=== PATIENT | female | born 1990 | race Caucasian/White ===

== ENCOUNTER 2019-05-11 17:10 | Emergency (ER) | payer SELFPAY | END 2019-05-11 19:23 | disposition home or self-care (01) | DX: K21.9 Gastro-esophageal reflux disease without esophagitis (principal); K29.00 Acute gastritis without bleeding; J01.90 Acute sinusitis, unspecified; F17.210 Nicotine dependence, cigarettes, uncomplicated; Z91.041 Radiographic dye allergy status; Z88.0 Allergy status to penicillin | CPT/HCPCS: 36415; 80053; 85025; 99283 ==

== ENCOUNTER 2019-05-20 11:30 | Emergency (ER) | payer SELFPAY ==
[2019-05-20 11:36] VITALS: BP 130/84; PULSE 89; RESP 20; TEMP 36.6; O2SAT 99; BMI 41.5
--- NOTE | 2019-05-20 12:37 | ED_ITS ---
HPI - Extremity Problem General: Chief complaint: Extremity Problem,Nontraumatic Stated complaint: right leg pain Time Seen by Provider: 05/20/19 12:33 History of Present Illness: HPI Narrative: Patient comes in today with complaints of right knee pain starting yesterday evening. Patient described a pretty active day but states that she normally is very active. Patient appears well. No signs of deformity or significant swelling is noted. Patient appears in no pain at rest. Review of Systems General: Reports: 10 or more systems reviewed and unremarkable except in HPI and below Musc: Reports: other (right knee pain) PFSH ED PFSH: Statuses (acute, chronic, etc) shown below reflect problem list status as previously entered and may not be historically accurate Social History Smoking and tobacco status: current every day smoker Female Reproductive History: Date of last menstrual period: 05/20/19 Physical Exam Const: COMMON NORMALS: no apparent distress and oriented x3 GENERAL APPEARANCE: cooperative HENMT: COMMON NORMALS: normocephalic, external ears normal, EAC's normal, TM's normal bilaterally and external nose normal HEAD & SCALP: normal to inspection and normocephalic FACE & SINUS: normal facial exam NOSE: external nose normal GENERAL EAR: hearing grossly impaired EXTERNAL EAR: Yes external ears normal EXTERNAL AUDITORY CANAL: EAC's normal TYMPANIC MEMBRANE: TM's normal bilaterally MOUTH: oral and palatal mucosa normal THROAT: posterior oropharynx normal Eye: COMMON NORMALS: PERRL and EOMs intact bilaterally PUPIL: Yes PERRL Neck/C-Spine: COMMON NORMALS: full ROM and no lymphadenopathy Lymph: LYMPHATIC: no lymphedema noted Chest: COMMONS NORMALS: inspection of chest normal and palpation of chest normal Resp: COMMON NORMALS: normal respiratory effort and clear to auscultation bilaterally AUSCULTATION: clear to auscultation bilaterally Cardio: COMMON NORMALS: regular rate and regular rhythm RATE: regular rate RHYTHM: regular rhythm GI: COMMON NORMALS: normal to inspection, nondistended, normoactive bowel sounds and non-tender : COMMON NORMALS: Yes no CVA tenderness BLADDER/KIDNEY EXAM: Yes no CVA tenderness Back/Pelvis: COMMON NORMALS: no CVA tenderness and thoracic and lumbar spine normal to inspection Extremity: RIGHT LOWER EXTREMITY: Yes knee joint Right knee: Yes inspection (minimal to no swelling), Yes palpation (tenderness medial joint line) and Yes ROM (normal) Neuro: COMMON NORMALS: oriented x3, moves all extremities and no focal motor deficits Psych: COMMON NORMALS: mental status grossly normal and cooperative Skin: COMMON NORMALS: no rashes or lesions noted GENERAL SKIN EXAM: no rashes or lesions noted Course Vital Signs: Vital signs: Vital Signs Temperature 97.9 F 05/20/19 11:36 Pulse Rate 89 05/20/19 11:36 Respiratory Rate 20 H 05/20/19 11:36 Blood Pressure 130/84 05/20/19 11:36 Pulse Oximetry 99 05/20/19 11:36 MDM - Extremity (Nontraumatic) MDM Narrative: Medical decision making narrative: Patient comes in today for complaints of right knee pain. On exam we note tenderness to the medial knee joint of the right leg. No obvious swelling. No crepitus noted with range of motion. Patient reports increased pain with extension and flexion. Distal pulse is normal with prompt capillary refill. Differential diagnosis includes osteoarthritis, tendinitis, ligament strain, meniscal tear. X-ray noted no abnormality. Reviewed exam with patient with recommendations for follow-up with primary care or orthopedics. Patient reports understanding of care and need for follow-up Discharge Plan Discharge Patient Disposition: Home, Self-Care Clinical Impression: Acute pain of left knee Condition: Stable Prescriptions: New diclofenac sodium 75 mg tablet,delayed release (DR/EC) 75 mg PO BID Qty: 20 RF: 0 hydrocodone-acetaminophen 5-325 mg tablet 1 tab PO Q8H PRN (Reason: pain, severe) Qty: 7 RF: 0 No Action Pepcid 40 mg Tablet 40 mg PO DAILY RF: 0 Referrals: Merissa Fisher DO [Primary Care Provider] - Discharge Diet: Usual diet Discharge Activity: Limit activity as instructed Activity Restrictions/Additional Instructions: Activity as tolerated Elastic wrap for comfort Acetaminophen for further pain relief Do not use ibuprofen with diclofenac Follow-up with primary care in one week for recheck Follow-up with orthopedist for persistent knee pain Stand Alone Forms: Work/Release Restrictions Coding Level of Care Code ED Museum Specialist for Rosa Maria Gaitan Exam Problem Focused
--- NOTE | 2019-05-20 12:37 | XR_ITS ---
WS: [id number] Right knee, 3 views, 05/20/2019 Clinical Data: pain Comparison: None. Findings: No fractures or dislocations are seen. The joint spaces are normal. The patella is intact. The soft t issues are unremarkable. XR/XR knee RT 3V* [id number] Impression: Negative right knee.
[2019-05-20 13:40] VITALS: BP 114/63; PULSE 68; RESP 16; O2SAT 98
== END 2019-05-20 13:46 | disposition home or self-care (01) ==
PROVIDERS: Emergency Provider Nurse Practitioner Family; PCP Family Medicine
DX: M25.561 Pain in right knee (principal); F17.210 Nicotine dependence, cigarettes, uncomplicated
CPT/HCPCS: 73562; 99281

== ENCOUNTER 2019-09-08 21:57 | Emergency (ER) | payer SELFPAY ==
[2019-09-08 22:09] VITALS: BP 135/86; PULSE 85; RESP 17; TEMP 36.5; O2SAT 99; BMI 42.9
--- NOTE | 2019-09-08 22:34 | W.ED.HA ---
HPI - Headache General: Chief Complaint: Headache Stated Complaint: myers Time Seen by Provider: 09/08/19 22:34 History of Present Illness: HPI Narrative: Patient is a 29-year-old female who comes to the ED with a migraine. Patient has a past medical history of migraines. Migraine started on September 04. She states that the headache is retro-orbital the right and left eye goes to the back of the head. She has photophobia and nausea with the headache. Denies any other neurological symptoms such as numbness tingling or weakness to her extremities. She states that this migraine is similar to past migraines but longer lasting and more severe. Patient has taken Tylenol ibuprofen and Aleve to help with migraine and it has not helped. Associated symptoms: Reports nausea and photophobia; Deny chest pain, fever(s), rash or vomiting Review of Systems Const: Denies: fever, chills or fatigue Eyes: Reports: photophobia; Denies: change in vision or eye discomfort ENMT: Denies: throat pain, painful swallowing, nasal discharge or nasal congestion Card: Denies: chest pain, palpitations, edema, swelling of feet/ankles, shortness of breath on exertion or shortness of breath when lying down Resp: Denies: shortness of breath, productive cough or non-productive cough GI: Reports: nausea; Denies: abdominal pain, vomiting, diarrhea, constipation or blood in stool : Denies: flank pain, painful urination or blood in urine Musc: Denies: neck pain, back pain or extremity swelling Skin/Breast: Denies: rash or new lesion Neuro: Reports: headache; Denies: numbness in extremities or weakness in extremities [facility] ED PFSH: Social History Smoking and tobacco status: current every day smoker Female Reproductive History: Date of last menstrual period: 05/20/19 Physical Exam Narrative: EXAM NARRATIVE: Patient is a 29-year-old female who is sitting in the exam room with the lights off when I entered. She appeared in no acute distress. Const: COMMON NORMALS: oriented x3, healthy appearing and alert GENERAL APPEARANCE: cooperative HENMT: COMMON NORMALS: normocephalic HEAD & SCALP: normocephalic MOUTH: oral and palatal mucosa normal THROAT: posterior oropharynx normal and uvula midline Eye: COMMON NORMALS: PERRL, EOMs intact bilaterally, conjunctivae normal and normal visual roblero by confrontation CONJUNCTIVA: Yes conjunctivae normal PUPIL: Yes PERRL DIRECT OPHTHALMOSCOPY: Yes photophobia Neck/C-Spine: COMMON NORMALS: supple GENERAL: Yes normal visual inspection Lymph: LYMPHATIC: no lymphadenopathy noted (No cervical lymphadenopathy noted.) Resp: COMMON NORMALS: normal respiratory effort, no retractions, no use of accessory muscles and clear to auscultation bilaterally EFFORT & INSPECTION: Yes able to speak in complete sentences and No respiratory distress AUSCULTATION: clear to auscultation bilaterally Cardio: COMMON NORMALS: regular rate, regular rhythm, S1 normal heart sound, S2 normal heart sound, no gallops, no clicks, no murmurs and peripheral pulses 2+ throughout RATE: regular rate RHYTHM: regular rhythm HEART SOUNDS: S1 normal and S2 normal PERIPHERAL PULSES: pulses 2+ throughout GI: COMMON NORMALS: normal to inspection, nondistended, normoactive bowel sounds, soft to palpation, non-tender and no masses PALPATION: Yes soft : COMMON NORMALS: Yes no CVA tenderness BLADDER/KIDNEY EXAM: Yes no CVA tenderness Back/Pelvis: COMMON NORMALS: no CVA tenderness Extremity: COMMON NORMALS: normal to inspection and no pedal edema Neuro: COMMON NORMALS: oriented x3, CN's II-XII intact bilaterally, moves all extremities, no focal motor deficits and no sensory deficits noted SENSORIUM/ORIENTATION: Yes alert SENSORY EXAM: Yes extremities (intact) MOTOR EXAM: strength 5/5 throughout Skin: COMMON NORMALS: no rashes or lesions noted GENERAL SKIN EXAM: no rashes or lesions noted and dry skin Course Vital Signs: Vital signs: Vital Signs Temperature 97.7 F 09/08/19 22:09 Pulse Rate 78 09/08/19 23:26 Respiratory Rate 16 09/08/19 23:26 Blood Pressure 131/84 09/08/19 23:10 Pulse Oximetry 99 09/08/19 23:26 MDM - Headache MDM Narrative: Medical decision making narrative: Patient is a 29-year-old female comes to the ED with a migraine. Patient left AMA due to a family situation. Patient did get cocktail of migraine medications before she left, but she left too soon to be able to tell if headache improved after meds. I also told patient I ordered a CT of her head since she was having a migraine that was more severe than her previous ones and has lasted over 3 days. Patient understood and said that she had to leave and could not get the CT scan because her family issue was urgent. Patient signed AMA form and left. Discharge Plan Discharge Patient Disposition: Left Against Medical Advice Clinical Impression: Migraine Qualifiers: Migraine type: without aura Status migrainosus presence: with status migrainosus Intractability: not intractable Qualified Code(s): G43.001 - Migraine without aura, not intractable, with status migrainosus Prescriptions: No Action Pepcid 40 mg Tablet 40 mg PO DAILY RF: 0 diclofenac sodium 75 mg tablet,delayed release (DR/EC) 75 mg PO BID Qty: 20 RF: 0 hydrocodone-acetaminophen 5-325 mg tablet 1 tab PO Q8H PRN (Reason: pain, severe) Qty: 7 RF: 0 Discharge Date/Time: 09/08/19 23:28 Coding Level of Care Code ED Pilot Captain for Rosa Maria Fwd Exam Comprehensive
[2019-09-08] MEDS: sodium chloride 0.9% 1,000 ML 999 ML IV (23:02)
[2019-09-08] MEDS: dexamethasone 10 mg/mL INJ IVP (23:03)
[2019-09-08] MEDS: metoclopramide 5 mg/mL SDV 2 mL 10 MG IVP (23:04)
[2019-09-08] MEDS: diphenhydrAMINE 50 mg/mL SDV 1mL 25 MG IVP (23:06)
[2019-09-08] MEDS: ketorolac 30 mg/mL INJ IVP (23:07)
[2019-09-08 23:10] VITALS: BP 131/84; PULSE 71; RESP 17; O2SAT 98
[2019-09-08 23:26] VITALS: PULSE 78; RESP 16; O2SAT 99
== END 2019-09-08 23:28 | disposition left against medical advice (07) ==
PROVIDERS: Emergency Provider Physician Assistant
DX: G43.001 Migraine without aura, not intractable, with status migrainosus (principal); Z53.29 Procedure and treatment not carried out because of patient's decision for other reasons; F17.210 Nicotine dependence, cigarettes, uncomplicated
CPT/HCPCS: 12345; 96361; 96374; 96375; 99282; 99283; J1100; J1200; J1885; J2765; J7030

== ENCOUNTER 2019-09-12 11:04 | Emergency (ER) | payer SELFPAY ==
[2019-09-12 11:08] VITALS: BMI 42.7
[2019-09-12 11:12] VITALS: BP 150/82; PULSE 71; RESP 16; TEMP 36.7; O2SAT 99
--- NOTE | 2019-09-12 11:21 | W.ED.DIZZY ---
HPI - Dizziness General: Chief Complaint: Dizziness Stated Complaint: BACK PAIN, DIZZY Time Seen by Provider: 09/12/19 11:10 History of Present Illness: HPI Narrative: Patient states that she frequently wakes up with lightheadedness and nausea. This morning the dizziness and lightheadedness has persisted. Patient has had 2 episodes of emesis today. Last intake was a microwave pizza sometime yesterday afternoon. MD elicited complaint: dizziness and lightheadedness Severity: severe Description: lightheadedness History of similar symptoms: Yes Exacerbating factors: movement/ambulation and change in body position Relieving factors: nothing Associated symptoms: Reports no associated symptoms, headache(s), malaise, nausea and vomiting Associated neuro symptoms: Reports no associated symptoms Review of Systems General: Reports: 10 or more systems reviewed and unremarkable except in HPI and below Const: Reports: malaise GI: Reports: nausea and vomiting Neuro: Reports: headache PFSH ED PFSH: Social History Smoking and tobacco status: current every day smoker Female Reproductive History: Date of last menstrual period: 09/06/19 Physical Exam Const: COMMON NORMALS: no apparent distress, oriented x3 and alert HENMT: COMMON NORMALS: normocephalic and head/scalp atraumatic HEAD & SCALP: normocephalic and atraumatic Resp: COMMON NORMALS: normal respiratory effort, no retractions, no use of accessory muscles and clear to auscultation bilaterally AUSCULTATION: clear to auscultation bilaterally Cardio: COMMON NORMALS: regular rate and regular rhythm RATE: regular rate RHYTHM: regular rhythm Extremity: COMMON NORMALS: normal to inspection and full ROM Neuro: COMMON NORMALS: oriented x3 SENSORIUM/ORIENTATION: Yes alert Course Vital Signs: Vital signs: Vital Signs Temperature 98.0 F 09/12/19 11:12 Pulse Rate 71 09/12/19 11:12 Respiratory Rate 16 09/12/19 11:12 Blood Pressure 150/82 09/12/19 11:12 Pulse Oximetry 99 09/12/19 11:12 MDM - Dizziness Lab Data: Labs: Lab Results 09/12/19 09/12/19 09/12/19 Range/Units 11:35 11:38 11:38 WBC 8.0 (4.0-10.0) 10^3/ uL RBC 4.21 (4.1-5.3) 10^6/u L Hgb 13.2 (11.5-15.3) g/dL Hct 41.0 (37.0-47.0) % MCV 97.4 (81-99) fL MCH 31.4 (28.0-34.0) pg MCHC 32.2 (30.0-36.0) g/dL RDW 12.2 (12.1-15.1) % Plt Count 340 (130-400) 10^3/c mm MPV 10.9 H (7.4-10.4) fL Neut % (Auto) 76.4 % Lymph % (Auto) 14.7 % Atkinson % (Auto) 6.2 % Eos % (Auto) 1.8 % Baso % (Auto) 0.5 % Neut # (Auto) 6.1 (1.8-7.7) 10^3/u L Lymph # (Auto) 1.2 (0.8-4.8) 10^3/u L Atkinson # (Auto) 0.5 (0.2-0.9) 10^3/u L Eos # (Auto) 0.1 (0.0-0.8) 10^3/u L Baso # (Auto) 0.0 (0.0-0.1) 10^3/u L Nucleated RBC % (a uto) 0 % Nucleated RBCs # 0.0 /100WBC Sodium 142 (136-145) mmol/L Potassium 3.7 (3.5-5.1) mmol/L Chloride 106 (98-107) mmol/L Carbon Dioxide 27 (22-29) mmol/L Anion Gap 12.7 (5-19) BUN 7 (6-20) mg/dL Creatinine 0.8 (0.5-0.9) mg/dL GFR Calculation 84.8 L (90-130) mL/min Glucose 104 (65-115) mg/dL Calculated Osmolal ity 290 (285-295) mOsm/k g Calcium 9.3 (8.5-10.5) mg/dL Total Bilirubin 0.3 (0.15-1.2) mg/dL AST 14 (0-32) U/L ALT 17 (0-33) U/L Alkaline Phosphata se 73 (35-105) IU/L Total Protein 6.6 (6.6-8.7) g/dL Albumin 4.2 (3.5-5.2) g/dL Globulin 2.4 (1.3-4.6) g/dL HCG, Qual (Negative) Urine Color Yellow (Yellow) Urine Appearance Clear (CLEAR) Urine pH 7 (5-7) Ur Specific Gravit y 1.010 (1.005-1.030) Urine Protein Neg (Negative) Urine Glucose (UA) Norm (Normal) Urine Ketones Negative (Negative) Urine Blood Neg (Negative) Urine Nitrate Negative (Negative) Urine Bilirubin Neg (NEGATIVE) Urine Urobilinogen Norm (Negative) mg/dL Ur Leukocyte Martine ase Negative (Negative) 09/12/19 Range/Units 11:38 WBC (4.0-10.0) 10^3/ uL RBC (4.1-5.3) 10^6/u L Hgb (11.5-15.3) g/dL Hct (37.0-47.0) % MCV (81-99) fL MCH (28.0-34.0) pg MCHC (30.0-36.0) g/dL RDW (12.1-15.1) % Plt Count (130-400) 10^3/c mm MPV (7.4-10.4) fL Neut % (Auto) % Lymph % (Auto) % Atkinson % (Auto) % Eos % (Auto) % Baso % (Auto) % Neut # (Auto) (1.8-7.7) 10^3/u L Lymph # (Auto) (0.8-4.8) 10^3/u L Atkinson # (Auto) (0.2-0.9) 10^3/u L Eos # (Auto) (0.0-0.8) 10^3/u L Baso # (Auto) (0.0-0.1) 10^3/u L Nucleated RBC % (a uto) % Nucleated RBCs # /100WBC Sodium (136-145) mmol/L Potassium (3.5-5.1) mmol/L Chloride (98-107) mmol/L Carbon Dioxide (22-29) mmol/L Anion Gap (5-19) BUN (6-20) mg/dL Creatinine (0.5-0.9) mg/dL GFR Calculation (90-130) mL/min Glucose (65-115) mg/dL Calculated Osmolal ity (285-295) mOsm/k g Calcium (8.5-10.5) mg/dL Total Bilirubin (0.15-1.2) mg/dL AST (0-32) U/L ALT (0-33) U/L Alkaline Phosphata se (35-105) IU/L Total Protein (6.6-8.7) g/dL Albumin (3.5-5.2) g/dL Globulin (1.3-4.6) g/dL HCG, Qual Negative (Negative) Urine Color (Yellow) Urine Appearance (CLEAR) Urine pH (5-7) Ur Specific Gravit y (1.005-1.030) Urine Protein (Negative) Urine Glucose (UA) (Normal) Urine Ketones (Negative) Urine Blood (Negative) Urine Nitrate (Negative) Urine Bilirubin (NEGATIVE) Urine Urobilinogen (Negative) mg/dL Ur Leukocyte Martine ase (Negative) Discharge Plan Discharge Patient Disposition: Home, Self-Care Clinical Impression: Orthostatic hypotension, Dizziness Condition: Stable Prescriptions: No Action Pepcid 40 mg Tablet 40 mg PO DAILY RF: 0 diclofenac sodium 75 mg tablet,delayed release (DR/EC) 75 mg PO BID Qty: 20 RF: 0 hydrocodone-acetaminophen 5-325 mg tablet 1 tab PO Q8H PRN (Reason: pain, severe) Qty: 7 RF: 0 Discharge Orders: Discharge Order (Routine); Ordered 09/12/19 Ordered By: Finn Sullivan Coding Level of Care Code ED Swine Extension Field Specialist for Chg Fwd Exam Detailed
--- NOTE | 2019-09-12 11:42 | PC.NURSE ---
Patient does not have PCP. Patient was offered assistance obtaining a PCP. The benefits were discussed. She declined. She verbalized understanding that she may call back at anytime to speak with case management for help with finding PCP.
[2019-09-12 11:56] LABS: Add Urine Microscopic? NO
[2019-09-12 11:57] LABS: Basophils % 0.5 %; Eosinophils # 0.1 10^3/uL (0.0-0.8); Eosinophils % 1.8 %; Hemoglobin 13.2 g/dL (11.5-15.3); Lymphocytes # 1.2 10^3/uL (0.8-4.8); Lymphocytes % 14.7 %; Mean Corpuscular HGB Conc 32.2 g/dL (30.0-36.0); Mean Corpuscular Hemoglobin 31.4 pg (28.0-34.0); Mean Corpuscular Volume 97.4 fL (81-99); Mean Platelet Volume 10.9 fL (7.4-10.4); Monocytes # 0.5 10^3/uL (0.2-0.9); Monocytes % 6.2 %; Neutrophils # 6.1 10^3/uL (1.8-7.7); Neutrophils % 76.4 %; Nucleated Red Blood Cells % 0 %; Platelet Count 340 10^3/cmm (130-400); Red Blood Count 4.21 10^6/uL (4.1-5.3); Red Cell Distribution Width 12.2 % (12.1-15.1)
[2019-09-12 12:01] LABS: Bilirubin Urine Neg (NEGATIVE); Blood Urine Neg (Negative); Glucose Urine UA Norm (Normal); Ketones Urine Negative (Negative); Leukocyte Esterase Urine Negative (Negative); Nitrate Urine Negative (Negative); Protein Urine Neg (Negative); Urine Appearance Clear (CLEAR); Urine Color Yellow (Yellow); Urobilinogen Urine Norm (Negative); pH Urine 7 (5-7)
[2019-09-12 12:17] LABS: Alanine Aminotransferase 17 U/L (0-33); Albumin Level 4.2 g/dL (3.5-5.2); Alkaline Phosphatase 73 IU/L (35-105); Anion Gap 12.7 (5-19); Aspartate Amino Transferase 14 U/L (0-32); Blood Urea Nitrogen 7 mg/dL (6-20); Calcium 9.3 mg/dL (8.5-10.5); Carbon Dioxide 27 mmol/L (22-29); Chloride 106 mmol/L (98-107); Globulin 2.4 g/dL (1.3-4.6); Glomerular Filtration Rate 84.8 mL/min (90-130); Glucose 104 mg/dL (65-115); Osmolality Calculated 290 mOsm/kg (285-295); Potassium 3.7 mmol/L (3.5-5.1); Sodium 142 mmol/L (136-145); Total Bilirubin 0.3 mg/dL (0.15-1.2); Total Protein 6.6 g/dL (6.6-8.7)
[2019-09-12 12:20] LABS: HCG, Serum Qual Negative (Negative)
[2019-09-12 12:31] VITALS: BP 135/70; PULSE 70; RESP 16; O2SAT 98
== END 2019-09-12 12:36 | disposition home or self-care (01) ==
PROVIDERS: Emergency Provider Family Medicine
DX: I95.1 Orthostatic hypotension (principal); F17.210 Nicotine dependence, cigarettes, uncomplicated
CPT/HCPCS: 12345; 36415; 80053; 81003; 84703; 85025; 96360; 99281; 99283

== ENCOUNTER 2019-09-14 16:55 | Emergency (ER) | payer SELFPAY | END 2019-09-14 16:59 | disposition left against medical advice (07) | LOC: ER 01-14 11:08 | PROVIDERS: Emergency Provider Emergency Medicine | DX: Z53.21 Procedure and treatment not carried out due to patient leaving prior to being seen by health care provider (principal) | CPT/HCPCS: 99281 ==

== ENCOUNTER → 2020-04-12 12:46 | Outpatient (BNVA) | payer SELFPAY | PROVIDERS: Visit Provider Nurse Practitioner Family | DX: J02.9 Acute pharyngitis, unspecified (principal) | CPT/HCPCS: 87071; 87880 ==

== ENCOUNTER → 2020-04-14 16:03 | Outpatient (BNVA) | payer SELFPAY | PROVIDERS: Visit Provider Nurse Practitioner | DX: J02.9 Acute pharyngitis, unspecified (principal) | CPT/HCPCS: 87071; 87880 ==

== ENCOUNTER 2020-06-15 11:11 | Emergency (ER) | payer SELFPAY ==
[2020-06-15 11:16] VITALS: BP 127/85; PULSE 90; RESP 18; TEMP 36.7; O2SAT 99; BMI 41.5
[2020-06-15 12:44] LABS: Add Urine Microscopic? NO
[2020-06-15 12:47] LABS: Basophils % 0.5 %; Eosinophils # 0.1 10^3/uL (0.0-0.8); Eosinophils % 1.5 %; Hematocrit 44.3 % (37.0-47.0); Hemoglobin 14.4 g/dL (11.5-15.3); Lymphocytes # 1.3 10^3/uL (0.8-4.8); Lymphocytes % 18.9 %; Mean Corpuscular HGB Conc 32.5 g/dL (30.0-36.0); Mean Corpuscular Hemoglobin 31.2 pg (28.0-34.0); Mean Corpuscular Volume 95.9 fL (81-99); Monocytes # 0.5 10^3/uL (0.2-0.9); Neutrophils # 4.72 10^3/uL (1.8-7.7); Neutrophils % 70.8 %; Nucleated Red Blood Cells % 0 %; Platelet Count 397 10^3/cmm (130-400); Red Blood Count 4.62 10^6/uL (4.1-5.3); Red Cell Distribution Width 13.2 % (12.1-15.1); White Blood Count 6.7 10^3/uL (4.0-10.0)
[2020-06-15 12:59] LABS: Rapid Strep A Test Negative (Negative)
[2020-06-15 13:05] LABS: Bilirubin Urine Neg (Negative); Blood Urine Neg (Negative); Glucose Urine UA Norm (Normal); Ketones Urine Negative (Negative); Leukocyte Esterase Urine Negative (Negative); Nitrate Urine Negative (Negative); Protein Urine Neg (Negative); Urine Appearance Clear (CLEAR); Urine Color Yellow (Yellow); Urobilinogen Urine 1 mg/dL (Negative); pH Urine 6 (5-7)
[2020-06-15 13:10] LABS: Alanine Aminotransferase 40 U/L (0-33); Albumin Level 4.3 g/dL (3.5-5.2); Alkaline Phosphatase 102 IU/L (35-105); Anion Gap 12.4 (5-19); Aspartate Amino Transferase 28 U/L (0-32); Blood Urea Nitrogen 4 mg/dL (6-20); C Reactive Protein 8.6 mg/L (0.0-4.9); Calcium 9.4 mg/dL (8.5-10.5); Carbon Dioxide 26 mmol/L (22-29); Chloride 102 mmol/L (98-107); Creatinine Clr Calc Pharmacy 149.8156; Globulin 2.5 g/dL (1.3-4.6); Glomerular Filtration Rate 118.2 mL/min (90-130); Glucose 82 mg/dL (65-115); Lipase 14 U/L (13-60); Osmolality Calculated 278 mOsm/kg (285-295); Potassium 4.4 mmol/L (3.5-5.1); Sodium 136 mmol/L (136-145); Total Bilirubin 0.3 mg/dL (0.15-1.2); Total Protein 6.8 g/dL (6.6-8.7)
[2020-06-15 13:20] LABS: SARS Covid-2 Antigen Negative (Negative)
[2020-06-15 13:25] LABS: Monoscreen Negative (Negative)
[2020-06-15] MEDS: lidocaine 2% viscous 15 ML, aluminum-mag hydrox-simethicon 30 ML, sucralfate oral liq 1 GM PO (14:23)
[2020-06-15] MEDS: ondansetron 2 mg/ML SDV 2 mL 4 MG IVP (14:23)
[2020-06-15 14:28] VITALS: BP 118/82; PULSE 68; O2SAT 98
--- NOTE | 2020-06-15 14:52 | ED_ITS ---
HPI - Abdominal Pain General: Chief Complaint: Abdominal Pain Stated Complaint: nausea, severe ab pain, stuffy nose Time Seen by Provider: 06/15/20 11:32 Source: patient Mode of arrival: ambulatory Limitations: no limitations History of Present Illness: HPI narrative: Patient is a 29-year-old female with no significant past medical history who presents to the emergency [facility] with nausea and vomiting that started 3 days ago. She also has associated epigastric pain. She had been having diarrhea for about 2 weeks but has resolved now. She denies any fever, any urinary symptoms. She denies NSAID use, caffeine use. She does smoke cigarettes. She has also had a sore throat for several weeks now and she feels like she has had some white material on her tonsils MD elicited complaint: abdominal pain Pertinent past history: none Pain Consistency: constant Location: Epigastric Severity: moderate Quality: cramping Radiation: none Migration to: no migration Exacerbating factors: eating Relieving factors: nothing Associated Symptoms: Reports nausea and vomiting; Denies anorexia, belching, bloating, change in bowel habits, change in stool character, chills, coffee ground emesis, constipation, GI cramping, diarrhea, dyspepsia, dysuria, excessive flatus, fever(s), hematochezia, hematuria, hematemesis, fecal incontinence, loose stools, melena, poor appetite and syncope Related Data: Date of Last Menstrual Period: 09/06/19 Review of Systems General: Reports: 10 or more systems reviewed and unremarkable except in HPI and below Const: Denies: fever(s) or chills Eyes: Denies: change in vision or blurry vision ENMT: Denies: throat pain, enlarged tonsils, odynophagia, hoarseness, mouth pain or swelling of lips/tongue Card: Denies: syncope Resp: Denies: dyspnea, productive cough or non-productive cough GI: Reports: nausea and vomiting; Denies: hematemesis, coffee ground emesis, diarrhea, constipation, bloating, GI cramping, belching, excessive flatus, fecal incontinence, change in bowel habits, change in stool character, hematochezia or melena : Denies: dysuria or hematuria Musc: Denies: neck pain, back pain or extremity swelling Skin/Breast: Denies: rash, pruritus or erythema Neuro: Denies: headache(s), numbness in extremities or weakness in extremities Endo: Denies: polyuria, polydipsia or tired all the time PFSH ED PFSH: Social History Smoking and tobacco status: current every day smoker Female Reproductive History: Date of last menstrual period: 09/06/19 Physical Exam Const: COMMON NORMALS: no acute distress, average body habitus, patient oriented x3, no limitations, healthy appearing, alert and well nourished HENMT: COMMON NORMALS: normocephalic, atraumatic and moist oral mucous membranes HEAD & SCALP: normocephalic and atraumatic Neck/C-Spine: COMMON NORMALS: no meningeal signs and no JVD Resp: COMMON NORMALS: normal respiratory effort, No retractions, No use of accessory muscles, clear to auscultation bilaterally and percussion normal AUSCULTATION: clear to auscultation bilaterally PERCUSSION: percussion normal Cardio: COMMON NORMALS: no JVD, regular rate, regular rhythm, S1 normal heart sound present, S2 normal heart sound present, No gallops present (Cardio), No clicks present (Cardio), No murmurs present (Cardio), No rub (Cardio) and Peripheral pulses 2+ throughout RATE: regular rate RHYTHM: regular rhythm HEART SOUNDS: S1 normal heart sound present and S2 normal heart sound present PERIPHERAL PULSES: Peripheral pulses 2+ throughout GI: COMMON NORMALS: Normal to inspection, nondistended, normoactive bowel sounds present, Soft to palpation, non-tender, No hepatosplenomegaly present, no masses and no bruits PALPATION: Yes Soft to palpation and Yes No hepatosplenomegaly present Extremity: COMMON NORMALS: normal to inspection, full ROM, capillary refill normal, no calf tenderness and no pedal edema Neuro: COMMON NORMALS: patient oriented x3 SENSORIUM/ORIENTATION: Yes alert MENINGEAL SIGNS: Yes no meningeal signs Course Reevaluation(s): Reevaluation #1: Discussed her lab findings with her. Unremarkable. No indication for imaging at this point. We will discharge her home and manage as a case of acute gastritis. GI cocktail helped. She voiced understanding and is in agreement with the plan. Time: 14:52 Vital Signs: Vital signs: Vital Signs Temperature 98.0 F 06/15/20 11:16 Pulse Rate 68 06/15/20 14:28 Respiratory Rate 18 06/15/20 11:16 Blood Pressure 118/82 06/15/20 14:28 Pulse Oximetry 98 06/15/20 14:28 MDM - Abdominal Pain MDM Narrative: Medical decision making narrative: Patient with clinical features of acute gastritis. She has had several days of vomiting, epigastric pain but no signs of dehydration. She is discharged home on manage as a case of acute gastritis. Medical Records: Attestation: I reviewed the patient's medical records. Lab Data: Attestation: I reviewed the patient's lab results. Labs: Lab Results 06/15/20 06/15/20 06/15/20 Range/Units 12:10 12:16 12:16 WBC 6.7 (4.0-10.0) 10^3/ uL RBC 4.62 (4.1-5.3) 10^6/u L Hgb 14.4 (11.5-15.3) g/dL Hct 44.3 (37.0-47.0) % MCV 95.9 (81-99) fL MCH 31.2 (28.0-34.0) pg MCHC 32.5 (30.0-36.0) g/dL RDW 13.2 (12.1-15.1) % Plt Count 397 (130-400) 10^3/c mm MPV 10.0 (7.4-10.4) fL Neut % (Auto) 70.8 % Lymph % (Auto) 18.9 % [place] % (Auto) 8.0 % Eos % (Auto) 1.5 % Baso % (Auto) 0.5 % Neut # (Auto) 4.72 (1.8-7.7) 10^3/u L Lymph # (Auto) 1.3 (0.8-4.8) 10^3/u L [place] # (Auto) 0.5 (0.2-0.9) 10^3/u L Eos # (Auto) 0.1 (0.0-0.8) 10^3/u L Baso # (Auto) 0.0 (0.0-0.1) 10^3/u L Nucleated RBC % (a uto) 0 % Nucleated RBCs # 0.0 /100WBC Sodium 136 (136-145) mmol/L Potassium 4.4 (3.5-5.1) mmol/L Chloride 102 (98-107) mmol/L Carbon Dioxide 26 (22-29) mmol/L Anion Gap 12.4 (5-19) BUN 4 L (6-20) mg/dL Creatinine 0.6 (0.5-0.9) mg/dL GFR Calculation 118.2 (90-130) mL/min Glucose 82 (65-115) mg/dL Calculated Osmolal ity 278 L (285-295) mOsm/k g Lactate (0.5-2.2) mmol/L Calcium 9.4 (8.5-10.5) mg/dL Total Bilirubin 0.3 (0.15-1.2) mg/dL AST 28 (0-32) U/L ALT 40 H (0-33) U/L Alkaline Phosphata se 102 (35-105) IU/L C-Reactive Protein 8.6 H (0.0-4.9) mg/L Total Protein 6.8 (6.6-8.7) g/dL Albumin 4.3 (3.5-5.2) g/dL Globulin 2.5 (1.3-4.6) g/dL Lipase 14 (13-60) U/L Urine Color Yellow (Yellow) Urine Appearance Clear (CLEAR) Urine pH 6 (5-7) Ur Specific Gravit y 1.010 (1.005-1.030) Urine Protein Neg (Negative) Urine Glucose (UA) Norm (Normal) Urine Ketones Negative (Negative) Urine Blood Neg (Negative) Urine Nitrate Negative (Negative) Urine Bilirubin Neg (Negative) Urine Urobilinogen 1 H (Negative) mg/dL Ur Leukocyte Martine ase Negative (Negative) Monoscreen (Negative) SARS-CoV-2 Ag (Rap id) (Negative) Group A Strep Rapi d (Negative) 06/15/20 06/15/20 06/15/20 Range/Units 12:16 12:16 12:21 WBC (4.0-10.0) 10^3/ uL RBC (4.1-5.3) 10^6/u L Hgb (11.5-15.3) g/dL Hct (37.0-47.0) % MCV (81-99) fL MCH (28.0-34.0) pg MCHC (30.0-36.0) g/dL RDW (12.1-15.1) % Plt Count (130-400) 10^3/c mm MPV (7.4-10.4) fL Neut % (Auto) % Lymph % (Auto) % [place] % (Auto) % Eos % (Auto) % Baso % (Auto) % Neut # (Auto) (1.8-7.7) 10^3/u L Lymph # (Auto) (0.8-4.8) 10^3/u L [place] # (Auto) (0.2-0.9) 10^3/u L Eos # (Auto) (0.0-0.8) 10^3/u L Baso # (Auto) (0.0-0.1) 10^3/u L Nucleated RBC % (a uto) % Nucleated RBCs # /100WBC Sodium (136-145) mmol/L Potassium (3.5-5.1) mmol/L Chloride (98-107) mmol/L Carbon Dioxide (22-29) mmol/L Anion Gap (5-19) BUN (6-20) mg/dL Creatinine (0.5-0.9) mg/dL GFR Calculation (90-130) mL/min Glucose (65-115) mg/dL Calculated Osmolal ity (285-295) mOsm/k g Lactate 1.0 (0.5-2.2) mmol/L Calcium (8.5-10.5) mg/dL Total Bilirubin (0.15-1.2) mg/dL AST (0-32) U/L ALT (0-33) U/L Alkaline Phosphata se (35-105) IU/L C-Reactive Protein (0.0-4.9) mg/L Total Protein (6.6-8.7) g/dL Albumin (3.5-5.2) g/dL Globulin (1.3-4.6) g/dL Lipase (13-60) U/L Urine Color (Yellow) Urine Appearance (CLEAR) Urine pH (5-7) Ur Specific Gravit y (1.005-1.030) Urine Protein (Negative) Urine Glucose (UA) (Normal) Urine Ketones (Negative) Urine Blood (Negative) Urine Nitrate (Negative) Urine Bilirubin (Negative) Urine Urobilinogen (Negative) mg/dL Ur Leukocyte Martine ase (Negative) Monoscreen Negative (Negative) SARS-CoV-2 Ag (Rap id) (Negative) Group A Strep Rapi d Negative (Negative) 06/15/20 Range/Units 12:21 WBC (4.0-10.0) 10^3/ uL RBC (4.1-5.3) 10^6/u L Hgb (11.5-15.3) g/dL Hct (37.0-47.0) % MCV (81-99) fL MCH (28.0-34.0) pg MCHC (30.0-36.0) g/dL RDW (12.1-15.1) % Plt Count (130-400) 10^3/c mm MPV (7.4-10.4) fL Neut % (Auto) % Lymph % (Auto) % [place] % (Auto) % Eos % (Auto) % Baso % (Auto) % Neut # (Auto) (1.8-7.7) 10^3/u L Lymph # (Auto) (0.8-4.8) 10^3/u L [place] # (Auto) (0.2-0.9) 10^3/u L Eos # (Auto) (0.0-0.8) 10^3/u L Baso # (Auto) (0.0-0.1) 10^3/u L Nucleated RBC % (a uto) % Nucleated RBCs # /100WBC Sodium (136-145) mmol/L Potassium (3.5-5.1) mmol/L Chloride (98-107) mmol/L Carbon Dioxide (22-29) mmol/L Anion Gap (5-19) BUN (6-20) mg/dL Creatinine (0.5-0.9) mg/dL GFR Calculation (90-130) mL/min Glucose (65-115) mg/dL Calculated Osmolal ity (285-295) mOsm/k g Lactate (0.5-2.2) mmol/L Calcium (8.5-10.5) mg/dL Total Bilirubin (0.15-1.2) mg/dL AST (0-32) U/L ALT (0-33) U/L Alkaline Phosphata se (35-105) IU/L C-Reactive Protein (0.0-4.9) mg/L Total Protein (6.6-8.7) g/dL Albumin (3.5-5.2) g/dL Globulin (1.3-4.6) g/dL Lipase (13-60) U/L Urine Color (Yellow) Urine Appearance (CLEAR) Urine pH (5-7) Ur Specific Gravit y (1.005-1.030) Urine Protein (Negative) Urine Glucose (UA) (Normal) Urine Ketones (Negative) Urine Blood (Negative) Urine Nitrate (Negative) Urine Bilirubin (Negative) Urine Urobilinogen (Negative) mg/dL Ur Leukocyte Martine ase (Negative) Monoscreen (Negative) SARS-CoV-2 Ag (Rap id) Negative (Negative) Group A Strep Rapi d (Negative) Discharge Plan Discharge Patient Disposition: Home Clinical Impression: Acute gastritis Qualifiers: Gastritis type: unspecified gastritis Gastritis bleeding: without bleeding Qualified Code(s): K29.00 - Acute gastritis without bleeding Condition: Stable Prescriptions: New pantoprazole [Protonix] 40 mg tablet,delayed release (DR/EC) 40 mg PO BID 14 Days Qty: 28 RF: 0 sucralfate 1 gram tablet 1 g PO BID 14 Days Qty: 28 RF: 0 ondansetron HCl 4 mg tablet 4 mg PO TID PRN (Reason: nausea and vomiting) Qty: 21 RF: 0 No Action No Known Home Medications RF: 0 Discharge Orders: Discharge ED (Routine); Ordered 06/15/20 Ordered By: Evelio Mccallum Discharge Diet: As Directed Discharge Activity: Increase activity as tolerated Patient Instructions: Gastritis (ED), Diet for Ulcers and Gastritis (ED) Activity Restrictions/Additional Instructions: Return for any new or worsening symptoms. Follow-up with your primary care provider within 3 days. Follow the diet as advised. Take medication as prescribed Stand Alone Forms: Work/School Release Coding Level of Care Code ED Assigner for Rosa Maria Gaitan
[2020-06-16 16:27] LABS: Coronavirus Test Green County Not Detected
--- NOTE | 2020-06-17 08:10 | PC.NURSE ---
Patient notified of COVID results at this time.
== END 2020-06-15 15:20 | disposition home or self-care (01) ==
PROVIDERS: Emergency Provider Family Medicine
DX: K29.00 Acute gastritis without bleeding (principal); F17.210 Nicotine dependence, cigarettes, uncomplicated
CPT/HCPCS: 12345; 80053; 81003; 83605; 83690; 85025; 86140; 86308; 87081; 87426; 87635; 87880; 96374; 99283; J2405

== ENCOUNTER → 2021-05-16 10:28 | Outpatient (BNVA) | payer OTHER, SELFPAY | PROVIDERS: Visit Provider Nurse Practitioner Family | DX: Z20.822 Contact with and (suspected) exposure to COVID-19 (principal) | CPT/HCPCS: 87635 ==

== ENCOUNTER 2022-04-25 20:56 | Emergency (ER) | payer BC, SELFPAY ==
[2022-04-25 20:59] VITALS: BP 141/80; PULSE 73; RESP 16; TEMP 36.7; O2SAT 100; BMI 41.5
[2022-04-25 21:56] VITALS: O2SAT 98
--- NOTE | 2022-04-25 22:18 | W.ED.EAR ---
HPI - Ear Problem General: Chief complaint: Ear Stated complaint: Right ear pain, sore throat Time Seen by Provider: 04/25/22 21:10 Source: patient and family Mode of arrival: ambulatory Limitations: no limitations History of Present Illness: Patient presents to the emergency department today for evaluation and treatment of recurrent exudative sore throat and bilateral ear pain. Patient states she deals with her current throat issues however, she is always told that it is not a concerning recurrence however, patient indicates she gets several episodes of these exudative tonsillitis every couple months. Patient states she has not had fever but is having pain and difficulty with swallowing today. Associated symptoms: Reports ear or mastoid pain Review of Systems General: Reports: 10 or more systems reviewed and unremarkable except in HPI and below ENMT: Reports: throat pain, enlarged tonsils, odynophagia, hoarseness and ear or mastoid pain PFSH ED PFSH: Social History Smoking and tobacco status: current every day smoker Female Reproductive History: Date of last menstrual period: 04/25/22 Physical Exam Const: COMMON NORMALS: no acute distress, patient oriented x3 and alert HENMT: OTHER: Patient has a moderate to significantly erythematous throat including tonsils and the tonsillar pillars. Uvula is midline. Patient has diffuse scattered white exudate noted on her tonsils bilaterally. Her airway is patent. Mucous membranes are moist. Eye: COMMON NORMALS: Equal, round and reactive pupils present, EOMs intact bilaterally and conjunctivae normal CONJUNCTIVA: Yes conjunctivae normal PUPIL: Yes Equal, round and reactive pupils present Neck/C-Spine: COMMON NORMALS: no JVD Lymph: LYMPHATIC: no lymphadenopathy noted Resp: COMMON NORMALS: normal respiratory effort, No retractions and No use of accessory muscles Cardio: COMMON NORMALS: no JVD and regular rate RATE: regular rate : COMMON NORMALS: Yes no CVA tenderness BLADDER/KIDNEY EXAM: Yes no CVA tenderness Back/Pelvis: COMMON NORMALS: no CVA tenderness, thoracic and lumbar spine normal to inspection and thoraco-lumbar ROM normal Extremity: COMMON NORMALS: normal to inspection, full ROM and no pedal edema Neuro: COMMON NORMALS: patient oriented x3 SENSORIUM/ORIENTATION: Yes alert Skin: COMMON NORMALS: no rashes or lesions noted and turgor normal GENERAL SKIN EXAM: no rashes or lesions noted and turgor normal Course Vital Signs: Vital signs: Vital Signs Temperature 98.0 F 04/25/22 20:59 Pulse Rate 73 04/25/22 20:59 Respiratory Rate 16 04/25/22 20:59 Blood Pressure 141/80 04/25/22 20:59 Pulse Oximetry 98 04/25/22 21:56 Oxygen Delivery Me thod 04/25/22 20:59 MDM - Ear Medical Decision Making Patient reports she has repeat exudative tonsillitis. She indicates she wishes to have an evaluation by ENT but, states she has not been able to get anyone to give her a referral. Patient's influenza and COVID test are negative. Her rapid strep test is negative but I have requested a throat culture be obtained to further evaluate potential causes of her recurrent exudative tonsillitis. We had a long discussion about the patient's allergies as she indicates she is allergic to other medications other than the ones that are listed. However, I believe many of these are sensitivities or side effects versus true allergies. Patient states she has a true penicillin allergy but is also allergic to his cousins . I see no signs of any cephalosporin allergies on her chart however, I cannot see in her past medical records where she has been given cephalosporins. She also states she is allergic to all the mycins . When asked about them, patient states she received 2 azithromycin packs back to back and developed a yeast infection. Explained the difference between sensitivities and true allergies and, given her reported penicillin and cephalosporin allergy, I will start treatment with clindamycin. Patient is to continue monitoring at home for any potential side effects. Patient is requesting something to help her sleep tonight due to her sore throat pain. She was given Toradol and Decadron prior to discharge. Note for her employer was also provided. Differential Diagnosis Unlikely otitis externa (More likely strep throat, viral pharyngitis, mononucleosis, exudative tonsillitis, peritonsillar abscess) Lab Data Laboratory Results Influenza Type A Ag negative (Negative) 04/25/22 21:45 Influenza Type B Ag negative (Negative) 04/25/22 21:45 SARS-CoV-2 Ag (Rapid) Negative (Negative) 04/25/22 21:45 Group A Strep Rapid Negative (Negative) 04/25/22 21:45 Discharge Plan Discharge Patient Disposition: Home Clinical Impression: Exudative tonsillitis Condition: Stable Prescriptions: New clindamycin HCl 300 mg capsule 300 mg PO Q8H 7 Days Qty: 21 0RF ondansetron 4 mg tablet,disintegrating 4 mg PO Q8H 5 Days Qty: 15 0RF dicyclomine 10 mg capsule 10 mg PO TID Qty: 20 0RF No Action prenat.vits,josefa,[id number] Tablet 1 tab PO DAILY Discharge Orders: Discharge ED (Routine); Ordered 04/25/22 Ordered By: mAada Mccauley Discharge Diet: Advance as tolerated Discharge Activity: Resume usual activity Patient Instructions: Pain Management, Tonsillitis - Adult Activity Restrictions/Additional Instructions: I have requested a throat swab be sent to the lab for culture to evaluate for any other acute findings to explain why you get recurrent exudative tonsillitis. We are starting you on some medications to help with nausea, diarrhea, and for bacterial infection. I have also requested a follow-up appointment with ENT to discuss your issues with recurrent exudative tonsillitis. Continue to push fluids. Stand Alone Forms: Work/School Release Coding Level of Care Code ED Business Advisor for Declang Fwd Exam Comprehensive
[2022-04-25 22:43] LABS: Rapid Strep A Test Negative (Negative)
[2022-04-25 22:44] LABS: Influenza A by IFA negative (Negative); Influenza B by IFA negative (Negative)
[2022-04-25 22:53] LABS: SARS Covid-2 Antigen Negative (Negative)
[2022-04-25] MEDS: ketorolac 30 mg/mL INJ IM (23:30)
[2022-04-25] MEDS: dexamethasone 10 mg/mL INJ IM (23:30)
[2022-04-25 23:39] VITALS: BP 117/86; PULSE 66; RESP 14; O2SAT 97
--- NOTE | 2022-04-26 10:58 | DCPLANNER ---
Addendum entered by Kinza Short 07/05/22 07:33: Patient had an appointment scheduled with ENT - patient did attend appointment. Addendum entered by Kinza Short 04/30/22 11:26: Patient has a follow up appointment scheduled for Friday, June 03, 2022 at 10:[address] Boyd at [facility]. Clinic will call patient with appointment information. Original Note: manager of medical had message to schedule a follow up appointment for patient with ENT. manager of medical sent patients information to the front office staff at [facility]. Patients information will be printed and reviewed. Clinic will call patient with appointment information.
== END 2022-04-25 23:40 | disposition home or self-care (01) ==
PROVIDERS: Emergency Provider Physician Assistant
DX: J03.90 Acute tonsillitis, unspecified (principal); Z20.822 Contact with and (suspected) exposure to COVID-19; F17.210 Nicotine dependence, cigarettes, uncomplicated
CPT/HCPCS: 87081; 87426; 87804; 87880; 96372; 99284; J1100; J1885

== ENCOUNTER 2022-08-15 21:03 | Emergency (ER) | payer BC, SELFPAY ==
[2022-08-15 21:34] VITALS: BP 125/84; PULSE 96; RESP 16; TEMP 37; O2SAT 98
[2022-08-15 22:07] VITALS: BP 135/91; PULSE 92; RESP 16; O2SAT 94
--- NOTE | 2022-08-15 22:21 | ED_ITS ---
HPI - Back Pain/Injury General: Chief Complaint: Back Pain/Injury Stated Complaint: back pain, migraine Time Seen by Provider: 08/15/22 21:32 History of Present Illness: Patient is in today with numerous complaints. 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 She reports that she has chronic knee problems. She states that when she did that she immediately felt pain across her low back and also in her left knee. She states that yesterday she woke up and could not move the lower half of her body. She states that she has numbness and tingling with a burning sensation radiating down both buttocks into both posterior hips. She denies any saddle anesthesia, loss of bowel or bladder continence. She also reports that she has been having a migraine today and she does have a chronic history of migraines and chronic back pain. She does report that she took hydrocodone also Toradol today to try and help her pain but nothing is really helping. She reports this is the worst pain she has been in. She denies that she is however her and her spouse have been trying to conceive a baby. She does report that she has also been having nausea and feeling sweaty today. She denies fever, chills. She denies vomiting. She denies recent illness. Associated symptoms: Reports nausea; Deny abdominal pain, chills, dysuria, fever(s), urinary urgency or vomiting Review of Systems Const: Denies: fever(s) or chills Card: Denies: chest pain or palpitations Resp: Denies: dyspnea, productive cough or non-productive cough GI: Reports: nausea; Denies: abdominal pain, vomiting, diarrhea or constipation : Reports: urinary hesitancy; Denies: flank pain, difficulty voiding, dysuria, urinary frequency or urinary urgency Musc: Reports: back pain and extremity pain Neuro: Reports: headache(s); Denies: lack of coordination, dizziness, confusion or behavioral changes PFSH ED PFSH: Medical History Sleep apnea Social History Smoking and tobacco status: current every day smoker Physical Exam Const: COMMON NORMALS: patient oriented x3 OTHER: Patient is sitting up crisscross applesauce in the bed moving with no apparent problems. Patient is in no acute distress. HENMT: TEETH & GINGIVA: Yes other (Patient does not have teeth) Neck/C-Spine: COMMON NORMALS: full ROM, no lymphadenopathy, supple and no JVD Resp: COMMON NORMALS: normal respiratory effort, No use of accessory muscles and clear to auscultation bilaterally AUSCULTATION: clear to auscultation bilaterally Cardio: COMMON NORMALS: no JVD, regular rate, regular rhythm, S1 normal heart sound present, S2 normal heart sound present and No murmurs present (Cardio) RATE: regular rate RHYTHM: regular rhythm HEART SOUNDS: S1 normal heart sound present and S2 normal heart sound present GI: COMMON NORMALS: Normal to inspection, nondistended, normoactive bowel sounds present, Soft to palpation and non-tender PALPATION: Yes Soft to palpation Back/Pelvis: OTHER: Tenderness to palpation bilateral lumbar musculature. No vertebral point tenderness appreciated. No obvious bony or soft tissue deformity appreciated. Patient has full range of motion Neuro: COMMON NORMALS: patient oriented x3, CN's II-XII intact bilaterally, moves all extremities, no focal motor deficits and no sensory deficits noted Course Vital Signs: Vital signs: Vital Signs Temperature 98.6 F 08/15/22 21:34 Pulse Rate 92 08/15/22 22:07 Respiratory Rate 16 08/15/22 22:07 Blood Pressure 113/81 08/16/22 00:00 Pulse Oximetry 91 08/16/22 00:00 Oxygen Delivery Me thod 08/15/22 21:34 MDM - Back Pain/Injury Medical Decision Making Patient is histrionic with numerous medical complaints today. Reporting headache, back pain. Patient was initially very hesitant when I mention a urine sample. She states I will be positive for hydrocodone because I took an old prescription today . Explained to patient that I was only testing for and UTI. hCG was negative lumbar spine x-ray ordered. Physical examination appears consistent with lumbar strain however patient is very concerned. Treat patient with IV fluids using migraine cocktail to help with her acute on chronic headache. Norflex administered to help with pain. After Norflex was administered patient reported resolution of pain. She voiced that she was ready to be discharged home. X-rays showed mild degenerative changes of the lumbar spine with no acute fractures. Advised patient of x-ray results. Advised lorena ent of conservative treatment at home. Follow-up with primary care provider. Return to the emergency department for any new or worsening symptoms. Labs Radiology Impressions Lumbar Spine X-Ray 08/15/22 23:39 IMPRESSION: 1. Mild degenerative changes of the lumbar spine. 2. No acute fractures are identified. Laboratory Results Ser , Semi-Qnt 1.00 mIU/mL 08/15/22 22:52 Urine Color Dark yellow (Yellow) 08/15/22 22:19 Urine Appearance Clear (CLEAR) 08/15/22 22:19 Urine pH 5 (5-7) 08/15/22 22:19 Ur Specific [place] 1.025 (1.005-1.030) 08/15/22 22:19 Urine Protein 1+ (Negative) H 08/15/22 22:19 Urine Glucose (UA) Norm (Normal) 08/15/22 22:19 Urine Ketones 1+ (Negative) H 08/15/22 22:19 Urine Blood 2+ (Negative) H 08/15/22 22:19 Urine Nitrate Negative (Negative) 08/15/22 22:19 Urine Bilirubin Neg (Negative) 08/15/22 22:19 Urine Urobilinogen 4 mg/dL (Negative) H 08/15/22 22:19 Ur Leukocyte Esterase Negative (Negative) 08/15/22 22:19 Urine RBC 0-4 /hpf (0-2) H 08/15/22 22:19 Urine WBC 0-4 /hpf (0-5) H 08/15/22 22:19 Ur Squamous Epith Cells 0-4 /hpf (0-5) H 08/15/22 22:19 Amorphous Sediment Not Reportable 08/15/22 22:19 Urine Bacteria Trace /hpf (NONE) 08/15/22 22:19 Urine Mucus 2+ /hpf 08/15/22 22:19 Discharge Plan Discharge Patient Disposition: Home Clinical Impression: Lumbar strain, Tension headache Condition: Stable Prescriptions: New cyclobenzaprine 10 mg tablet 10 mg PO TID PRN (Reason: muscle spasm) Qty: 9 0RF No Action prenat.vits,josefa,[id number] Tablet 1 tab PO DAILY omeprazole 20 mg capsule,delayed release(DR/EC) 20 mg PO DAILY Qty: 90 3RF dicyclomine 10 mg capsule 10 mg PO TID Qty: 20 0RF Discharge Orders: Discharge ED (Routine); Ordered 08/16/22 Ordered By: Kelly Turner Referrals: Maricruz Turner APN [Primary Care Provider] - Discharge Diet: Usual diet Discharge Activity: Increase activity as tolerated Patient Instructions: Low Back Strain (ED) Activity Restrictions/Additional Instructions: Your x-ray did not show any acute findings today. You do have some chronic arthritic type changes of the low back. I recommend conservative treatments at home including gentle stretches and massage. You can use Flexeril muscle relaxant medication every 8 hours as needed for muscle spasming and pain. Do not drive after taking this medication. Do not take this medication with anything else that makes you sleepy. I recommend to increase your water intake. Follow-up with your primary care provider. Return to the ER as needed for new or worsening symptoms Coding Level of Care Code ED Process Supervisor for Rosa Maria Gaitan
[2022-08-15] MEDS: metoclopramide 5 mg/mL SDV 2 mL 10 MG IVP (22:22)
[2022-08-15] MEDS: diphenhydrAMINE 50 mg/mL SDV 1mL IVP (22:22)
[2022-08-15] MEDS: sodium chloride 0.9% 1,000 ML 999 ML IV (22:22)
[2022-08-15 22:45] LABS: Specific Gravity, Urine 1.025 (1.005-1.030); Urine Appearance Clear (CLEAR); Urine Color Dark Yellow (Yellow); pH Urine 5 (5-7)
[2022-08-15 22:46] LABS: Add Urine Culture? No; Add Urine Microscopic? YES; Bacteria Urine TRACE /hpf; Bilirubin Urine Neg (Negative); Blood Urine 2+ (Negative); Glucose Urine UA Norm (Normal); Ketones Urine 1+ (Negative); Leukocyte Esterase Urine Negative (Negative); Mucus Urine 2+ /hpf; Nitrate Urine Negative (Negative); Protein Urine 1+ (Negative); RBC Urine 0-4 /hpf (0-2); Squamous Epithelial Cell Urine 0-4 /hpf (0-5); Urobilinogen Urine 4 mg/dL (Negative); WBC Urine 0-4 /hpf (0-5)
--- NOTE | 2022-08-15 23:39 | XRR_ITS ---
PROCEDURE INFORMATION: Exam: XR Lumbosacral Spine Exam date and time: 08/15/2022 11:46 PM Age: 32 years old Clinical indication: Low back pain TECHNIQUE: Imaging protocol: Radiologic exam of the lumbosacral spine. Views: 2 or 3 views. COMPARISON: No relevant prior studies available. FINDINGS: Bones/joints: Relative straightening of the lumbar lordosis. The alignment is otherwise maintained. The vertebral body heights are maintained. No evidence of acute fracture. Mild degenerative disc disease of the thoracolumbar and lower lumbar spine. Decreased disc space height of the lower thoracic and thoracolumbar spine. Decreased disc space height at L5-S1. Multilevel facet arthropathy. Suspected mild neural foraminal stenosis at L5-S1. Soft tissues: Colonic gases and fecal matter in the colon. Nonobstructive gaseous pattern. XR/XR lumbar spine 2-3V* [id number] IMPRESSION: 1. Mild degenerative changes of the lumbar spine. 2. No acute fractures are identified.
[2022-08-16] VITALS: BP 113/81; O2SAT 91
[2022-08-16] MEDS: orphenadrine 30 mg/mL Inj 2 mL 60 MG IM (00:18)
[2022-08-16 00:53] VITALS: BP 118/73; PULSE 72; RESP 16; O2SAT 99
== END 2022-08-16 01:03 | disposition home or self-care (01) ==
PROVIDERS: Emergency Provider Nurse Practitioner Family; PCP Nurse Practitioner Family
DX: S39.012A Strain of muscle, fascia and tendon of lower back, initial encounter (principal); G44.209 Tension-type headache, unspecified, not intractable; F17.210 Nicotine dependence, cigarettes, uncomplicated; X58.XXXA Exposure to other specified factors, initial encounter; Y99.0 Civilian activity done for income or pay
CPT/HCPCS: 72100; 81001; 84702; 96361; 96372; 96374; 96375; 99284; J1200; J2360; J2765; J7030

== ENCOUNTER 2022-12-11 14:58 | Emergency (ER) | payer SELFPAY ==
[2022-12-11 15:40] VITALS: BP 136/88; PULSE 79; RESP 16; O2SAT 98
[2022-12-11 17:13] LABS: Hematocrit 44.1 % (37.0-47.0); Hemoglobin 14.3 g/dL (11.5-15.3)
--- NOTE | 2022-12-11 19:48 | ED_ITS ---
HPI - General: Chief complaint: Vaginal Bleeding Stated complaint: vag bleed / post positve test Time Seen by Provider: 12/11/22 19:43 Source: patient Mode of arrival: ambulatory Limitations: no limitations History of Present Illness: 32-year-old female states that she been try to get states that she is 4 days late on her menstruation she took 2 home 2 days ago she states that it was a faint positive states today she started having vaginal bleeding and passing some small clots. She denies any pain she is concerned that she is having a miscarriage Associated symptoms: Deny abdominal pain, headache(s), nausea or vomiting Review of Systems Const: Denies: fever(s) or chills ENMT: Denies: throat pain or dental pain Card: Denies: chest pain Resp: Denies: dyspnea GI: Denies: abdominal pain, nausea, vomiting or diarrhea : Reports: vaginal bleeding Musc: Denies: neck pain or back pain Skin/Breast: Denies: rash Neuro: Denies: headache(s) PFSH ED PFSH: Medical History Sleep apnea Social History Smoking and tobacco status: current every day smoker Physical Exam Const: COMMON NORMALS: no acute distress and patient oriented x3 HENMT: COMMON NORMALS: normocephalic HEAD & SCALP: normocephalic Eye: COMMON NORMALS: conjunctivae normal CONJUNCTIVA: Yes conjunctivae normal Chest: COMMONS NORMALS: normal inspection of the chest Resp: COMMON NORMALS: normal respiratory effort GI: INSPECTION: Yes normal to inspection Extremity: COMMON NORMALS: normal to inspection Neuro: COMMON NORMALS: patient oriented x3 Psych: COMMON NORMALS: mental status grossly normal Course Vital Signs: Vital signs: Vital Signs Pulse Rate 79 12/11/22 15:40 Respiratory Rate 16 12/11/22 15:40 Blood Pressure 136/88 12/11/22 15:40 Pulse Oximetry 98 12/11/22 15:40 Oxygen Delivery Me thod Room Air 12/11/22 15:40 MDM - OB/Uterine Contractions Medical Decision Making Patient presents here with concern of a miscarriage her quantitative here is florentin talavera. I informed her her home positive are likely false positive she is likely currently having her menstruation that was a few days late. Her hemoglobin is normal as well she is stable for discharge at this time. Medical Records I reviewed the patient's medical records. Lab Data I reviewed the patient's lab results. 12/11/22 17:02 Laboratory Results Hgb 14.3 g/dL (11.5-15.3) 12/11/22 17:02 Hct 44.1 % (37.0-47.0) 12/11/22 17:02 Ser , Semi-Qnt 1.00 mIU/mL 12/11/22 17:02 Blood Type A Positive 12/11/22 17:02 Rho(D) Type Positive 12/11/22 17:02 Discharge Plan Discharge Patient Disposition: Home Clinical Impression: Vaginal bleeding Condition: Stable Prescriptions: No Action prenat.vits,josefa,[id number] Tablet 1 tab PO DAILY omeprazole 20 mg capsule,delayed release(DR/EC) 20 mg PO DAILY Qty: 90 3RF dicyclomine 10 mg capsule 10 mg PO TID Qty: 20 0RF cyclobenzaprine 10 mg tablet 10 mg PO TID PRN (Reason: muscle spasm) Qty: 9 0RF Discharge Orders: Discharge ED (Routine); Ordered 12/11/22 Ordered By: Johnson Beckford Discharge Diet: Advance as tolerated Discharge Activity: Resume usual activity Patient Instructions: Abnormal (Dysfunctional) Uterine Bleeding (ED) Coding Level of Care Code ED Soda Clerk for Rosa Maria Gaitan
== END 2022-12-11 19:56 | disposition home or self-care (01) ==
PROVIDERS: Emergency Medicine; Emergency Provider Emergency Medicine
DX: N93.9 Abnormal uterine and vaginal bleeding, unspecified (principal); F17.200 Nicotine dependence, unspecified, uncomplicated; Z79.899 Other long term (current) drug therapy
CPT/HCPCS: 36415; 84702; 85014; 85018; 86900; 99283